=== PATIENT | female | born 2000 | race Caucasian/White ===

== ENCOUNTER 2019-06-21 19:17 | Emergency (ER) | payer OTHER ==
--- NOTE | 2019-06-21 20:03 | ED ---
GI/ HPI - HPI Summary HPI Summary: Patient is a 19 y/o F presenting to [facility] with complaints of dysuria, decreased frequency of urination and lower abdominal pain. She denies Hx of UTI and notes that she recently stopped taking depo as she is trying to get with her partner. She denies N/V/D and constipation. PMHx of depression and ADHD, FMHx of kidney stones is reported. PSHx is denied. Patient reports no tobacco, alcohol, or substance usage. On triage, pain is rated 8/10, nothing is noted to aggravate/alleviate Sx. Home medications and allergies are reviewed. - History of Current Complaint Chief Complaint: EDUrogenitalProblems Time Seen by Provider: 06/21/19 19:46 Stated Complaint: ABD PAIN/BURNING AND WHEN URINATING PER PT Hx Obtained From: Patient Onset/Duration: Still Present Timing: Constant Pain Intensity: 8 Location of Pain: Other - lower Associated Signs and Symptoms: Positive: Dysuria, Abdominal Pain, Other: - decreased frequency of urination. Negative: Nausea, Vomiting, Constipation, Diarrhea Aggravating Factor(s): Nothing Alleviating Factor(s): Nothing - Allergy/Home Medications Allergies/Adverse Reactions: Allergies Allergy/AdvReac Type Severity Reaction Status Date / Time No Known Allergies Allergy Verified 06/21/19 19:23 PMH/Surg Hx/FS Hx/Imm Hx Sensory History: Denies: Hx Legally Blind Opthamlomology History: Denies: Hx Legally Blind Psychiatric History: Reports: Hx Attention Deficit Hyperactivity Disorder, Hx Depression - Surgical History Surgery Procedure, Year, and Place: none Infectious Disease History: No Infectious Disease History: Denies: Traveled Outside the [place] in Last 30 Days - Family History Known Family History: Positive: Renal Disease - kidney stones - Social History Alcohol Use: None Substance Use Type: Reports: None Smoking Status (MU): Never Smoked Tobacco Review of Systems Gastrointestinal: Other - negative - constipation Positive: Abdominal Pain. Negative: Vomiting, Diarrhea, Nausea Positive: dysuria, frequency - decreased All Other Systems Reviewed And Are Negative: Yes Physical Exam - Summary Physical Exam Summary: VITAL SIGNS: Reviewed. GENERAL: Patient is a well-developed and nourished female who is lying comfortable in the stretcher. Patient is not in any acute respiratory distress. HEAD AND FACE: No signs of trauma. No ecchymosis, hematomas or skull depressions. No sinus tenderness. EYES: PERRLA, EOMI x 2, No injected conjunctiva, no nystagmus. EARS: Hearing grossly intact. Ear canals and tympanic membranes are within normal limits. MOUTH: Oropharynx within normal limits. NECK: Supple, trachea is midline, no adenopathy, no JVD, no carotid bruit, no c- spine tenderness, neck with full ROM. CHEST: Symmetric, no tenderness at palpation. LUNGS: Clear to auscultation bilaterally. No wheezing or crackles. CVS: Regular rate and rhythm, S1 and S2 present, no murmurs or gallops appreciated. ABDOMEN: Soft, non-tender. No signs of distention. No rebound, no guarding, and no masses palpated. Bowel sounds are normal. EXTREMITIES: FROM in all major joints, no edema, no cyanosis or clubbing. NEURO: Alert and oriented x 3. No acute neurological deficits. Speech is normal and follows commands. SKIN: Dry and warm. Triage Information Reviewed: Yes Vital Signs On Initial Exam: Initial Vitals Temp Pulse Resp BP Pulse Ox 98.3 F 95 14 118/78 98 06/21/19 19:22 06/21/19 19:22 06/21/19 19:22 06/21/19 19:22 06/21/19 19:22 Vital Signs Reviewed: Yes Procedures - Sedation Patient Received Moderate/Deep Sedation with Procedure: No Diagnostics - Vital Signs Vital Signs Temp Pulse Resp BP Pulse Ox 06/21/19 19:22 98.3 F 95 14 118/78 98 - Laboratory Result Diagrams: 06/21/19 20:03 06/21/19 20:03 Lab Statement: Any lab studies that have been ordered have been reviewed, and results considered in the medical decision making process. Re-Evaluation - Re-Evaluation First Eval Re-Evaluation Time: 21:03 Comment: I discussed all the findings and test results with the patient. Patient was instructed to return to the emergency room immediately if any of the symptoms return or worsen. Plan of care was discussed with the patient and understands and agrees. All questions were answered at patient satisfaction. There were no further complaints or concerns. Lung exam before discharge: CTA B/ L. Good air exchange. No wheezing or crackles heard. CVS: S1 and S2 present. No murmurs appreciated. Patient is alert and oriented x 3. Patient is hemodynamically stable. Patient will be discharged home with follow up PCP in the next 2-3 days GIGU Course/Dx - Course Assessment/Plan: This patient is a 19-year-old female who presents to the emergency department with a chief complaint of dysuria, urinary frequency and urgency with lower abdominal pain. Blood test results without any significant abnormality except for WBCs of 14, and urinalysis positive for proteins, ketones , blood, leukocytes, WBCs, and RBCs. UA is also positive for squamous epithelial cells. Therefore, it looks contaminated. Therefore, well send the urine for cultures. However, because of the patients symptoms and increased WBCs, I will place the patient on Nirtofurantoin and Pyridium. I discussed all the findings and test results with the patient. Patient was instructed to return to the emergency room immediately if any of the symptoms return or worsen. Plan of care was discussed with the patient and understands and agrees. All questions were answered at patient satisfaction. There were no further complaints or concerns. Lung exam before discharge: CTA B/L. Good air exchange. No wheezing or crackles heard. CVS: S1 and S2 present. No murmurs appreciated. Patient is alert and oriented x 3. Patient is hemodynamically stable. Patient will be discharged home with follow up PCP in the next 2-3 days - Diagnoses Provider Diagnoses: UTI (urinary tract infection) Discharge ED - Sign-Out/Discharge Documenting (check all that apply): Patient Departure - discharge - Discharge Plan Condition: Stable Disposition: HOME Prescriptions: Nitrofurantoin Macrocrystal [Nitrofurantoin] 100 mg PO BID #14 capsule Phenazopyridine TAB* [Pyridium 100 mg TAB*] 100 mg PO TID #9 tab Referrals: [facility] [Outside] - 3 Days Additional Instructions: PLEASE RETURN TO ED FOR ANY NEW OR WORSENING SYMPTOMS. PLEASE FOLLOW UP WITH YOUR PRIMARY CARE PHYSICIAN WITHIN 2-3 DAYS. - Billing Disposition and Condition Condition: STABLE Disposition: Home - Attestation Statements Document Initiated by Scribe: Yes Documenting Scribe: BRIGIDA HENDERSON Provider For Whom Huyibe is Documenting (Include Credential): JAI GARRETT MD Scribe Attestation: BRIGIDA Savage, scribed for JAI GARRETT MD on 06/21/19 at 2140. Scribe Documentation Reviewed: Yes Provider Attestation: The documentation as recorded by the scribe, BRIGIDA HENDERSON accurately reflects the service I personally performed and the decisions made by me, JAI GARRETT MD Status of Milla Document: Viewed
[2019-06-21 20:10] LABS: ABS Basophils 0.1 10^3/ul (0-0.2); ABS Eosinophils 0.1 10^3/ul (0-0.6); ABS Lymphocytes 1.4 10^3/ul (1.0-4.8); ABS Monocytes 0.9 10^3/ul (0-0.8); ABS Neutrophils 11.6 10^3/ul (1.5-7.7); Eosinophil % 0.5 %; Hematocrit 45 % (35-47); Hemoglobin 14.9 g/dL (12.0-16.0); Lymphocyte % 9.7 %; Mean Corpuscular HGB Conc 33 g/dL (31-36); Mean Corpuscular Hemoglobin 28 pg (27-31); Mean Corpuscular Volume 85 fL (80-97); Mean Platelet Volume 10.2 fL (7.4-10.4); Platelet Count 205 10^3/uL (150-450); Red Blood Count 5.28 10^6 /uL (3.70-4.87); Red Cell Distribution Width 14 % (10-15)
[2019-06-21 20:27] LABS: ALT 25 U/L (7-52); AST 19 U/L (13-39); Albumin 4.5 g/dL (3.2-5.2); Albumin/Globulin Ratio 1.6 (1-3); Alkaline Phosphatase 75 U/L (34-104); Anion Gap 7 mmol/L (2-11); BUN/Creatinine Ratio 9.9 (8-20); Blood Urea Nitrogen 8 mg/dL (6-24); C Reactive Protein 1.87 mg/L (<8.01); CO2 Carbon Dioxide 25 mmol/L (22-32); Calcium 9.4 mg/dL (8.6-10.3); Chloride 105 mmol/L (101-111); EGFR African American 109.1 (>60); EGFR Non-African American 90.1 (>60); Globulin 2.8 g/dL (2-4); Glucose 78 mg/dL (70-100); Potassium 3.7 mmol/L (3.5-5.0); Sodium 137 mmol/L (135-145); Total Protein 7.3 g/dL (6.4-8.9)
[2019-06-21 20:34] LABS: HCG Pregnancy < 0.60 mIU/mL
[2019-06-21 20:45] LABS: Urine Appearance Turbid; Urine Bacteria Absent (Absent); Urine Bilirubin Negative (Negative); Urine Blood 3+ (Negative); Urine Color Yellow; Urine Glucose Negative (Negative); Urine Ketones Trace (Negative); Urine Nitrite Negative (Negative); Urine Protein 2+(100 mg/dL) (Negative); Urine Red Blood Cell 3+(>10/hpf) (Absent); Urine Specific Gravity 1.018 (1.010-1.030); Urine Squamous Epithelial Cell Present (Absent); Urine Urobilinogen Negative (Negative); Urine White Blood Cell 3+(>20/hpf) (Absent)
[2019-06-21] MEDS ORDERED: Nitrofurantoin Macrocrystals* 100 MG CAP PO ONE (20:56)
[2019-06-21] MEDS ORDERED: Phenazopyridine TAB* 100 MG PO ONE (20:59)
[2019-06-21 21:31] VITALS: BP 107/69
--- NOTE | 2019-06-25 06:09 | ED ---
Imaging and Labs Follow Up Follow Up Type: Labs/Cultures Labs/Culture Result: urine culture grew Escherichia coli in saprophyticus Patient Communication/Plan: Patient was placed on Macrobid prior to discharge Patient Communication/Plan: sensitive to organism, nothing further required Provider Diagnoses: UTI (urinary tract infection)
== END 2019-06-21 21:30 | disposition home or self-care (01) ==
LOC: ED 19:17
DX: N39.0 Urinary tract infection, site not specified (principal); R30.0 Dysuria; R10.9 Unspecified abdominal pain; F90.9 Attention-deficit hyperactivity disorder, unspecified type; F32.9 Major depressive disorder, single episode, unspecified
CPT/HCPCS: 36415; 80053; 81003; 81015; 84702; 85025; 86140; 87077; 87086; 87186; 99282; A9270-GY